=== PATIENT | male | born 1995 | race Caucasian/White ===

== ENCOUNTER 2019-07-09 22:20 | Emergency (ER) | payer SELFPAY ==
[~2019-07-09] VITALS: Ht 188 cm; Wt 59.0 kg
[2019-07-09 22:22] VITALS: BP 131/64
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
[2019-07-09] MEDS ORDERED: KETOROLAC TROMETHAMINE INJ 60 MG/2 ML VIAL IM ONE ×2 (23:26→23:30)
== END 2019-07-09 23:58 | disposition home or self-care (01) ==
LOC: ER 22:31
DX: M79.18 Myalgia, other site (principal); F17.200 Nicotine dependence, unspecified, uncomplicated; Z90.89 Acquired absence of other organs; Y04.8XXA Assault by other bodily force, initial encounter; Y93.89 Activity, other specified; Y92.89 Other specified places as the place of occurrence of the external cause; Y99.8 Other external cause status
CPT/HCPCS: 96372; 99283; 99406; J1885

== ENCOUNTER 2019-07-11 23:32 | Emergency (ER) | payer SELFPAY ==
[~2019-07-11] VITALS: Ht 188 cm; Wt 59.0 kg
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
[2019-07-11] MEDS ORDERED: KETOROLAC TROMETHAMINE INJ 30 MG/ML VIAL ONE (23:49)
--- NOTE | 2019-07-11 23:56 | NUR ---
TECH AT BEDSIDE FOR XRAYS
[2019-07-12] MEDS ORDERED: KETOROLAC TROMETHAMINE INJ 60 MG/2 ML VIAL IM ONE
--- NOTE | 2019-07-12 00:31 | NUR ---
Patient discharged to home in stable condition. Written and verbal after care instructions given. Patient verbalizes understanding of instruction.
[2019-07-12 00:33] VITALS: BP 137/82
== END 2019-07-12 00:33 | disposition home or self-care (01) ==
LOC: ER 23:35
DX: S63.591A Other specified sprain of right wrist, initial encounter (principal); S80.211A Abrasion, right knee, initial encounter; F17.200 Nicotine dependence, unspecified, uncomplicated; Z90.89 Acquired absence of other organs; V00.141A Fall from scooter (nonmotorized), initial encounter; Y93.I9 Activity, other involving external motion; Y92.89 Other specified places as the place of occurrence of the external cause; Y99.8 Other external cause status
CPT/HCPCS: 73110; 73130; 73564; 96372; 99283; J1885

== ENCOUNTER 2021-04-04 21:39 | Emergency (ER) | payer SELFPAY ==
[~2021-04-04] VITALS: Ht 188 cm; Wt 53.5 kg
--- NOTE | 2021-04-04 22:00 | NUR ---
The patient bibs for c/o feeling anxious, increased work/family life stress x 7 days. Denies SI/HI. Patient denies pain. Attached to the monitor. Will continue to monitor the patient
[2021-04-04] MEDS ORDERED: DIAZ10TA PO (22:17)
--- NOTE | 2021-04-04 22:27 | NUR ---
PT. VERBALIZED UNDERSTANDING OF AFTERCARE INSTRUCTIONS.Patient discharged to home in stable condition. Written and verbal after care instructions given. Patient verbalizes understanding of instruction.
[2021-04-04 22:28] VITALS: BP 114/90
== END 2021-04-04 22:28 | disposition home or self-care (01) ==
LOC: ER 21:39
DX: F41.9 Anxiety disorder, unspecified (principal); F17.200 Nicotine dependence, unspecified, uncomplicated; Z76.0 Encounter for issue of repeat prescription; Z79.899 Other long term (current) drug therapy